=== PATIENT | female | born 1975 | race Two or more races ===

== ENCOUNTER → 2017-12-03 | Outpatient (CLI) | payer OTHER | END | disposition home or self-care (01) | LOC: CFH 10:28 | PROVIDERS: ATTEND Obstetrics & Gynecology | DX: Z12.31 Encounter for screening mammogram for malignant neoplasm of breast (principal); D25.9 Leiomyoma of uterus, unspecified; N85.2 Hypertrophy of uterus; N92.0 Excessive and frequent menstruation with regular cycle | CPT/HCPCS: 76830; 77067 ==